=== PATIENT | male | born 1970 | race Caucasian/White ===

== ENCOUNTER → 2019-12-29 | Outpatient (CLI) | payer BC | LOC: COL.RAD 09:18 | DX: Z82.49 Family history of ischemic heart disease and other diseases of the circulatory system (principal) ==

== ENCOUNTER 2021-09-19 15:00 | Outpatient (RCR) | payer BC | END 2021-09-22 | disposition home or self-care (01) | LOC: WSPT | DX: M25.561 Pain in right knee (principal); Z98.890 Other specified postprocedural states; Z96.651 Presence of right artificial knee joint ==

== ENCOUNTER 2021-10-04 14:15 | Outpatient (RCR) | payer BC | END 2021-10-23 | disposition home or self-care (01) | LOC: WSPT | DX: M25.561 Pain in right knee (principal); Z96.651 Presence of right artificial knee joint; Z98.890 Other specified postprocedural states ==

== ENCOUNTER → 2022-07-23 | Outpatient (RCR) | payer OTHER | END | disposition home or self-care (01) | LOC: WSPT | DX: Z98.890 Other specified postprocedural states (principal) ==

== ENCOUNTER 2022-07-30 08:15 | Outpatient (RCR) | payer OTHER | END 2022-08-19 13:17 | disposition home or self-care (01) | LOC: WSPT 08:15 | DX: Z96.652 Presence of left artificial knee joint (principal) ==

== ENCOUNTER 2023-09-29 07:00 | Day surgery (SDC) | payer BC ==
[~2023-09-29] VITALS: Ht 182.9 cm; Wt 92.2 kg
[2023-09-29] VITALS (8 sets, daily range): BP systolic 106–128; BP diastolic 63–86; PULSE 58–78; TEMP 97.5–97.9
[~2023-09-29 07:00] MED LIST: LR 1,000 ML IV SCH
[2023-09-29] MEDS ORDERED: Lidocaine PF 2% (20 MG/ML) 5 ML VIAL ONE (08:47)
[2023-09-29] MEDS ORDERED: fentaNYL 50 MCG/ML 2 ML VIAL ONE ×2 (08:47→10:17)
[2023-09-29] MEDS ORDERED: NORCO 325 MG-51 TAB PO (09:21)
[2023-09-29] MEDS ORDERED: MOTRIN 600600 MG/TAB PO (09:21)
[2023-09-29] MEDS ORDERED: Ondansetron 4 MG/2 ML VIAL ONE (09:49)
[2023-09-29] MEDS ORDERED: Ketorolac 30 MG/ML VIAL ONE (09:49)
[2023-09-29] MEDS ORDERED: dexAMETHasone 10 MG/ML VIAL ONE (09:49)
[2023-09-29] MEDS ORDERED: droPERidol 2.5 MG/ML 2 ML VIAL IV PRN (10:00)
[2023-09-29] MEDS ORDERED: Ondansetron 4 MG/2 ML VIAL IV PRN ×2 (10:00→11:00)
[2023-09-29] MEDS ORDERED: fentaNYL 50 MCG/ML 1 ML SYRINGE/VIAL [PACU/SDC ONLY] IV PRN (10:00)
[2023-09-29] MEDS ORDERED: Topical Skin Adhesive 1 EACH (1 ML) TOP ONE (10:03)
--- NOTE | 2023-09-29 10:46 | NUR ---
PATIENT RETURNED TO ROOM 2 VIA CART, ALERT AND ORIENTED X3. STATES PAIN IS 3/10 TO ABDOMEN AND DENIES INTERVENTIONS FOR PAIN. DENIES NAUSEA AND SHORTNESS OF BREATH. BREATHING REGULAR AND UNLABORED ON ROOM AIR. BILATERAL BREATH SOUNDS CLEAR. HEART TONES REGULAR, S1 AND S2. SKIN WARM AND DRY. BILATERAL PEDAL PULSES STRONG AND REGULAR. BOWEL SOUNDS HYPOACTIVE. NURSE HANDOFF COMPLETED IN ROOM BY ABIGAIL Curry RN AND PERLA ALTMAN CRNA. ONE SURGICAL INCISION ABOVE THE UMBILICUS WITH SKIN GLUE CLOSURE. INCISION CLEAN AND DRY WITH SKIN GLUE INTACT. SEE CHART FOR VITAL SIGNS. CALL LIGHT IN REACH.
[2023-09-29] MEDS ORDERED: Ibuprofen 600 MG TAB PO PRN (11:00)
[2023-09-29] MEDS ORDERED: Acetaminophen 325 MG TAB PO PRN (11:00)
[2023-09-29] MEDS ORDERED: Morphine 4 MG/ML VIAL IV PRN (11:00)
--- NOTE | 2023-09-29 11:09 | NUR ---
PATIENT REPORTED WORSENING ABDOMINAL PAIN, RATING 4/10. DISCUSSED PAIN MANAGEMENT OPTIONS. SEE EMAR FOR MEDICATION GIVEN. 1115: PATIENT HAD APPLE JUICE AND JOLIE CRACKERS. BOTH FOOD AND DRINK TOLERATED WELL, NO DYSPHAGIA.
--- NOTE | 2023-09-29 11:53 | NUR ---
PATIENT STATED ABDOMINAL PAIN HAD IMPROVED AFTER FENTANYL. REQUESTED ADDITIONAL PAIN MEDICATION. REPORTED 3/10 ABDOMINAL PAIN. SEE EMAR FOR MEDICATION ADMINISTRERED.
--- NOTE | 2023-09-29 12:30 | NUR ---
1208: PATIENT AMBULATED IN HALLWAY WITH STEADY GAIT. VOIDED IN RESTROOM WITHOUT DIFFICULTY. 1220: DISCHARGE TEACHING COMPLETED WITH PRINTED EDUCATION AND INSTRUCTIONS SENT HOME WITH PATIENT AND SPOUSE. FOLLOW UP APPOINTMENT DATE, TIME AND LOCATION COMMUNICATED TO PATIENT AND SPOUSE. PATIENT VERBALIZED UNDERSTANDING. PATIENT RATES ABDOMINAL PAIN 2/10 AND STATES IT FEELS " SORE" AND "TOLERBALE". DENIES ADDITIONAL INTERVENTIONS. ABDOMINAL SURGICAL SITE CLEAN AND DRY WITH SKIN GLUE INTACT. IV REMOVED. GAUZE AND COBAN PLACED OVER SITE. 1230: PATIENT CHANGED INTO PERSONAL CLOTHING AND DISCHARGED HOME WITH SPOUSE TRANSPORT.
== END 2023-09-29 12:30 | disposition home or self-care (01) ==
LOC: SDCO 07:00
DX: K42.9 Umbilical hernia without obstruction or gangrene (principal); K62.5 Hemorrhage of anus and rectum
CPT/HCPCS: C1781; J0690; J1100; J1885; J2405; J2704; J3010; J7120